=== PATIENT | male | born 1950 | race Caucasian/White ===

== ENCOUNTER → 2016-11-19 | Outpatient (CLI) | payer OTHER ==
[~2016-11-19] MED LIST: ATOR-22 PO; LISI-725 PO
[2016-11-19 09:54] LABS: BLOOD UREA NITROGEN 18 mg/dl (7-18); BUN/CREATININE RATIO 13.1 (10-20); CALCIUM 9.1 mg/dl (8.5-10.1); CARBON DIOXIDE 28 mmol/L (21-32); CHLORIDE 104 mmol/L (98-107); CHOLESTEROL 235 mg/dl (0-200); GLUCOSE 98 mg/dl (70-99); POTASSIUM 4.7 mmol/L (3.5-5.1); SODIUM 139 mmol/L (136-145); TRIGLYCERIDES 83 mg/dl (0-150); VERY LOW DENSITY LIPOPROT CALC 17 mg/dl
[2016-11-19 09:59] LABS: CHOLESTEROL/HDL RATIO 3.1; HDL CHOLESTEROL 76 mg/dl; LDL CHOLESTEROL CALCULATED 142 mg/dl
== END | disposition home or self-care (01) ==
LOC: C.LAB 08:39
DX: I10 Essential (primary) hypertension (principal); E78.5 Hyperlipidemia, unspecified; N40.0 Benign prostatic hyperplasia without lower urinary tract symptoms

== ENCOUNTER → 2016-12-13 | Outpatient (CLI) | payer OTHER ==
--- NOTE | 2016-12-13 13:13 | DIAGNOSTIC IMAGING REPORT ---
ULTRASOUND LEFT GROIN NONVASCULAR CLINICAL HISTORY: Melanoma. Lymphadenopathy. COMPARISON STUDY: No priors. FINDINGS: Real-time, grayscale, and color flow sonography of the left groin is performed at the indicated site of interest. There is an ovoid hypoechoic soft tissue lesion at this site measuring 2.3 x 1.3 x 1.8 cm. Internal flow is identified on color imaging, and the appearance is concerning for an abnormal lymph node. No fluid collection is seen. IMPRESSION: There is an abnormal appearing left inguinal lymph node as detailed above. The appearance is concerning for metastatic disease given the reported history of melanoma. Further assessment with fine-needle aspiration is recommended. Electronically signed by: Taran Betancourt M.D. 12/13/2016 1:12 PM Dictated Date/Time: 12/13/2016 1:10 PM
== END | disposition home or self-care (01) ==
LOC: C.ULTRBC 12:44
DX: R59.0 Localized enlarged lymph nodes (principal); Z85.820 Personal history of malignant melanoma of skin

== ENCOUNTER → 2016-12-22 | Outpatient (CLI) | payer OTHER ==
--- NOTE | 2016-12-22 10:47 | DIAGNOSTIC IMAGING REPORT ---
ULTRASOUND-GUIDED FINE-NEEDLE ASPIRATION OF A LEFT INGUINAL LYMPH NODE HISTORY: Left inguinal lymphadenopathy. COMPARISON: Left inguinal ultrasound 12/13/2016. PROCEDURE: Written informed consent was obtained. The left groin was prepped and draped in the usual sterile fashion. 1% lidocaine was used for local anesthesia. A total of 2 passes using a 25-gauge needle and a 22-gauge needle were made through dominant left inguinal lymph node under ultrasound guidance. Specimens were given to the on-site pathologist who determined adequate tissue for diagnosis. The patient tolerated the procedure well. There were no immediate complications. IMPRESSION: Successful ultrasound-guided fine-needle aspiration of a left inguinal lymph node Electronically signed by: Shahbaz Landin M.D. 12/22/2016 10:46 AM Dictated Date/Time: 12/22/2016 10:45 AM
--- NOTE | 2016-12-22 10:48 | Discharge Instructions ---
Discharge Instructions Procedure Procedure Date: Dec 22, 2016. Reason for visit: Mass Left Leg. Discharge Discharge Date: Dec 22, 2016. Discharge Diagnosis: same Instructions Activity Recommendations: No limitations Return to School/Work: no limitations Recommended Home Diet: Resume Previous Diet Provider Instructions: ACTIVITY RECOMMENDATIONS: * Rest today. * Resume regular activity in one day. MEDICATIONS: * May take Tylenol or Ibuprofen as needed for pain. DIET: * Resume previous diet. SPECIAL CARE INSTRUCTIONS: Call your doctor if: * Temperature above 101 degrees F. * Pain not relieved by pain medicine ordered. * Increased drainage or redness from incision. * Notify your doctor with any questions or concerns. Call your doctor or go to the nearest Emergency Department if you experience: * Increased chest pain or shortness of breath. FOLLOW UP VISIT: Follow-up with Referring Physician as scheduled. Allergies Coded Allergies: No Known Allergies (Unverified , 06/08/16) Poli Messer Recommendations: Call your doctor if: * Temperature above 101 degrees * Pain not relieved by pain medicine ordered * There is increased drainage or redness from any incision * You have any unanswered questions or concerns. Your Doctors Instructions noted above were prepared by provider Shahbaz Landin. Patient Signature Section: Patient Instructions Signature Page Rogelio Casillas Patient (or Guardian) Signature/Date: I have read and understand the instructions given to me by my caregivers. Caregiver/RN/Doctor Signature/Date: The above-named patient and/or guardian has received patient instructions on this date. + Original Patient Signature Page (only) stays with chart. Please make copy for patient.
== END | disposition home or self-care (01) ==
LOC: C.ULTR 09:48
DX: C43.72 Malignant melanoma of left lower limb, including hip (principal)

== ENCOUNTER → 2016-12-29 | Outpatient (CLI) | payer OTHER ==
[2016-12-29 13:12] LABS: BASO % 1.1 %; BASO ABS # 0.08 K/uL (0-0.2); COMPLETE YES; EOS % 1.8 %; HEMATOCRIT 39.7 % (42-52); IG% 0.1 %; LYMPH % 15.4 %; LYMPH ABS # 1.09 K/uL (1.2-3.4); MEAN CELL VOLUME 90.8 fL (80-100); MEAN CORPUSCULAR HEMOGLOBIN 31.8 pg (25-34); MEAN PLATELET VOLUME 9.9 fL (7.4-10.4); MONO % 7.6 %; PLATELET COUNT 296 K/uL (130-400); RED BLOOD COUNT 4.37 M/uL (4.7-6.1); WHITE BLOOD COUNT 7.09 K/uL (4.8-10.8)
[2016-12-29 13:37] LABS: ALT/SGPT 39 U/L (12-78); AST/SGOT 24 U/L (15-37); BLOOD UREA NITROGEN 23 mg/dl (7-18); BUN/CREATININE RATIO 17.4 (10-20); CALCIUM 9.2 mg/dl (8.5-10.1); CARBON DIOXIDE 31 mmol/L (21-32); CHLORIDE 106 mmol/L (98-107); GLUCOSE 90 mg/dl (70-99); POTASSIUM 4.3 mmol/L (3.5-5.1); SODIUM 141 mmol/L (136-145)
[2016-12-29 13:39] LABS: ALB/GLOB RATIO 1.3 (0.9-2); ALKALINE PHOSPHATASE 60 U/L (45-117)
--- NOTE | 2016-12-29 15:01 | DIAGNOSTIC IMAGING REPORT ---
CT ABD/PELVIS IV AND ORAL CONT CLINICAL HISTORY: Malignant melanoma COMPARISON STUDY: None. TECHNIQUE: Following the IV administration of 119 mL of Optiray-320, CT scan of the abdomen and pelvis was performed from the lung bases to the proximal femurs. Images are reviewed in the axial, sagittal, and coronal planes. IV contrast was administered without complication. CT DOSE: FINDINGS: Lower chest: The heart is normal in size and configuration, without pericardial effusion. The lung bases and pleural spaces are clear. Liver: The contrast-enhanced liver is normal in size, contour, and attenuation. There is no intrahepatic biliary ductal dilatation. The hepatic veins and portal veins are patent. Gallbladder: Unremarkable. Spleen: Normal in size and attenuation. Pancreas: Unremarkable. Adrenal glands: Unremarkable. Kidneys: There is an 11 mm right renal cyst. There is no hydronephrosis. Bowel: There are no transition zones indicate bowel obstruction. No acute inflammatory changes are visualized. Peritoneum: There is no intraperitoneal free air or abdominal ascites. Vasculature: The abdominal aorta is normal in course and caliber. Adenopathy: There are borderline enlarged left inguinal lymph nodes measuring up to 13 mm in diameter. Pelvic viscera: There is mild prostatic enlargement Skeletal structures: No destructive osseous lesions are seen. IMPRESSION: Borderline enlarged left inguinal lymph nodes. Otherwise no evidence of metastatic disease. Electronically signed by: Thomas Coy M.D. 12/29/2016 2:59 PM Dictated Date/Time: 12/29/2016 2:55 PM
--- NOTE | 2016-12-29 15:13 | DIAGNOSTIC IMAGING REPORT ---
CT OF THE CHEST WITH IV CONTRAST CLINICAL HISTORY: Malignant melanoma. COMPARISON STUDY: Chest radiograph May 17, 2012 TECHNIQUE: Following IV administration of 119 mL of Optiray-320, helical axial images of the chest were obtained. Images were viewed in the axial, sagittal and coronal planes. IV contrast was administered without complication. CT DOSE: 763.09 mGy.cm FINDINGS: No enlarged axillary, mediastinal or hilar lymph nodes are present. The heart is mildly enlarged. Central airways are patent. There are no suspicious pulmonary nodules. There are no areas of consolidation. Linear and groundglass opacities represent atelectasis. The bony thorax is unremarkable. There are no suspicious osseous lesions within the bony thorax. The abdomen and pelvis will be reported separately. There is a cyst within the upper pole of the right kidney. IMPRESSION: No evidence of metastatic disease within the chest. Electronically signed by: Toni Boykin M.D. 12/29/2016 3:12 PM Dictated Date/Time: 12/29/2016 2:58 PM
== END | disposition home or self-care (01) ==
LOC: C.CTS 12:16
DX: C43.72 Malignant melanoma of left lower limb, including hip (principal)

== ENCOUNTER → 2017-01-06 | Outpatient (CLI) | payer OTHER ==
[~2017-01-06] MED LIST changes: +GADAVIST IV PRN
--- NOTE | 2017-01-06 18:00 | DIAGNOSTIC IMAGING REPORT ---
MRI OF THE BRAIN WITHOUT AND WITH IV CONTRAST CLINICAL HISTORY: MALIGNANT MELANOMA STAGING STUDY COMPARISON STUDY: No previous studies for comparison. TECHNIQUE: MRI of the brain was performed from the vertex to the skull base utilizing various T1 and T2 weighted sequences. Following the IV administration of 8 mL of Gadavist contrast, additional enhanced images were obtained. FINDINGS: Sagittal T1, axial diffusion, proton density and T2 weighted axial, coronal FLAIR, and pre and post axial T1-weighted images were acquired. These were supplemented with post gadolinium coronal T1 weighted images. No intra-axial mass lesions are visualized. There is a 10 x 7 x 3 mm dural based mass within the left parietal convexity. This likely reflects a tiny meningioma Axial diffusion-weighted images reveal no evidence of acute or subacute infarction. There is no evidence of ventricular dilatation. Proton density T2-weighted and FLAIR images reveal no significant intraparenchymal signal abnormalities. There are no abnormal flow voids. The suspected left parietal vertex meningioma enhances. There are no additional foci of pathologic enhancement There is mild inflammatory changes within the maxillary sinuses IMPRESSION: 1. 10 x 7 x 3 mm enhancing dural based mass within the left parietal convexity. This likely represents a tiny meningioma. No additional enhancing lesions are visualized. 2. No evidence of acute or subacute infarction Electronically signed by: Thomas Coy M.D. 01/06/2017 5:58 PM Dictated Date/Time: 01/06/2017 5:53 PM
== END | disposition home or self-care (01) ==
LOC: C.MRI 17:01
PROVIDERS: ATTEND Internal Medicine Hematology & Oncology
DX: C43.9 Malignant melanoma of skin, unspecified (principal)

== ENCOUNTER → 2017-02-25 | Outpatient (CLI) | payer OTHER ==
[~2017-02-25] MED LIST changes: -GADAVIST IV PRN
[2017-02-25 09:55] LABS: CALCIUM 9.6 mg/dl (8.5-10.1)
[2017-02-25 10:01] LABS: ALT/SGPT 40 U/L (12-78); BLOOD UREA NITROGEN 19 mg/dl (7-18); BUN/CREATININE RATIO 15.7 (10-20); CARBON DIOXIDE 29 mmol/L (21-32); CHLORIDE 102 mmol/L (98-107); GLUCOSE 91 mg/dl (70-99); POTASSIUM 4.5 mmol/L (3.5-5.1); SODIUM 138 mmol/L (136-145)
[2017-02-25 10:03] LABS: AST/SGOT 26 U/L (15-37)
== END | disposition home or self-care (01) ==
LOC: C.LAB 08:06
DX: I10 Essential (primary) hypertension (principal); E78.5 Hyperlipidemia, unspecified

== ENCOUNTER → 2017-08-24 | Outpatient (CLI) | payer OTHER ==
[2017-08-24 11:10] LABS: BASO % 0.6 %; BASO ABS # 0.04 K/uL (0-0.2); COMPLETE YES; EOS % 2.3 %; IG% 0.3 %; LYMPH % 18.4 %; LYMPH ABS # 1.22 K/uL (1.2-3.4); MEAN CELL VOLUME 90.9 fL (80-100); MEAN CORPUSCULAR HEMOGLOBIN 31.2 pg (25-34); MEAN CORPUSCULAR HGB CONC 34.3 g/dl (32-36); MEAN PLATELET VOLUME 10.1 fL (7.4-10.4); MONO % 12.5 %; NEUT % 65.9 %; PLATELET COUNT 341 K/uL (130-400); RED BLOOD COUNT 4.62 M/uL (4.7-6.1); WHITE BLOOD COUNT 6.64 K/uL (4.8-10.8)
[2017-08-24 11:37] LABS: ALT/SGPT 40 U/L (12-78); AST/SGOT 27 U/L (15-37); BLOOD UREA NITROGEN 14 mg/dl (7-18); BUN/CREATININE RATIO 10.1 (10-20); CARBON DIOXIDE 26 mmol/L (21-32); CHLORIDE 101 mmol/L (98-107); CREATININE 1.38 mg/dl (0.60-1.40); GLUCOSE 94 mg/dl (70-99); SODIUM 135 mmol/L (136-145)
[2017-08-24 11:40] LABS: CHOLESTEROL 99 mg/dl (0-200); CHOLESTEROL/HDL RATIO 2.3; HDL CHOLESTEROL 44 mg/dl; LDL CHOLESTEROL CALCULATED 38 mg/dl; TRIGLYCERIDES 85 mg/dl (0-150); URIC ACID 8.4 mg/dl (2.6-7.2); VERY LOW DENSITY LIPOPROT CALC 17 mg/dl
== END | disposition home or self-care (01) ==
LOC: C.LABBC 08:28
DX: I10 Essential (primary) hypertension (principal); E78.5 Hyperlipidemia, unspecified

== ENCOUNTER → 2017-11-18 | Outpatient (CLI) | payer OTHER ==
[2017-11-18 09:29] LABS: BASO % 0.2 %; BASO ABS # 0.02 K/uL (0-0.2); EOS % 1.7 %; EOS ABS # 0.22 K/uL (0-0.5); HEMATOCRIT 37.3 % (42-52); HEMOGLOBIN 12.8 g/dL (14.0-18.0); IG# 0.26 K/uL (0.00-0.02); LYMPH % 22.1 %; LYMPH ABS # 2.94 K/uL (1.2-3.4); MEAN CELL VOLUME 90.8 fL (80-100); MEAN CORPUSCULAR HEMOGLOBIN 31.1 pg (25-34); MEAN PLATELET VOLUME 9.3 fL (7.4-10.4); MONO % 9.8 %; NEUT % 64.2 %; NEUT ABS # 8.54 K/uL (1.4-6.5); PLATELET COUNT 320 K/uL (130-400); RED CELL DISTRIBUTION WIDTH CV 14.9 % (11.5-14.5); RED CELL DISTRIBUTION WIDTH SD 49.5 fL (36.4-46.3); WHITE BLOOD COUNT 13.28 K/uL (4.8-10.8)
[2017-11-18 09:36] LABS: MEAN CORPUSCULAR HGB CONC 34.3 g/dl (32-36)
[2017-11-18 09:48] LABS: ALBUMIN 3.1 gm/dl (3.4-5.0); BLOOD UREA NITROGEN 19 mg/dl (7-18); CALCIUM 8.6 mg/dl (8.5-10.1); CARBON DIOXIDE 29 mmol/L (21-32); CREATININE 1.04 mg/dl (0.60-1.40); GLUCOSE 93 mg/dl (70-99); POTASSIUM 3.8 mmol/L (3.5-5.1); SODIUM 140 mmol/L (136-145)
[2017-11-18 09:50] LABS: ALKALINE PHOSPHATASE 57 U/L (45-117); ALT/SGPT 47 U/L (12-78); AST/SGOT 24 U/L (15-37); TOTAL PROTEIN 5.6 gm/dl (6.4-8.2)
== END ==
LOC: C.LAB 08:59
PROVIDERS: ATTEND Internal Medicine Hematology
DX: C43.9 Malignant melanoma of skin, unspecified (principal)

== ENCOUNTER → 2017-12-23 | Outpatient (CLI) | payer OTHER ==
[2017-12-23 16:39] LABS: ALT/SGPT 62 U/L (12-78); AST/SGOT 43 U/L (15-37); BLOOD UREA NITROGEN 18 mg/dl (7-18); CALCIUM 8.8 mg/dl (8.5-10.1); CARBON DIOXIDE 27 mmol/L (21-32); CREATININE 1.24 mg/dl (0.60-1.40); GLUCOSE 83 mg/dl (70-99); POTASSIUM 4.3 mmol/L (3.5-5.1); SODIUM 137 mmol/L (136-145)
== END | disposition home or self-care (01) ==
LOC: C.LABBC 14:04
DX: I10 Essential (primary) hypertension (principal); E78.5 Hyperlipidemia, unspecified

== ENCOUNTER → 2018-05-03 | Outpatient (CLI) | payer OTHER ==
[2018-05-03 12:23] LABS: BASO ABS # 0.07 K/uL (0-0.2); EOS % 1.9 %; EOS ABS # 0.14 K/uL (0-0.5); HEMATOCRIT 44.1 % (42-52); HEMOGLOBIN 14.6 g/dL (14.0-18.0); IG# 0.02 K/uL (0.00-0.02); LYMPH % 15.5 %; LYMPH ABS # 1.12 K/uL (1.2-3.4); MEAN CELL VOLUME 94.2 fL (80-100); MEAN CORPUSCULAR HEMOGLOBIN 31.2 pg (25-34); MEAN CORPUSCULAR HGB CONC 33.1 g/dl (32-36); MONO % 12.1 %; MONO ABS # 0.87 K/uL (0.11-0.59); NEUT % 69.2 %; NEUT ABS # 4.99 K/uL (1.4-6.5); PLATELET COUNT 332 K/uL (130-400); RED CELL DISTRIBUTION WIDTH CV 14.2 % (11.5-14.5); RED CELL DISTRIBUTION WIDTH SD 48.5 fL (36.4-46.3); WHITE BLOOD COUNT 7.21 K/uL (4.8-10.8)
[2018-05-03 12:49] LABS: ALT/SGPT 49 U/L (12-78); AST/SGOT 46 U/L (15-37); BLOOD UREA NITROGEN 14 mg/dl (7-18); CALCIUM 9.2 mg/dl (8.5-10.1); CARBON DIOXIDE 26 mmol/L (21-32); CREATININE 1.07 mg/dl (0.60-1.40); GLUCOSE 84 mg/dl (70-99); POTASSIUM 5.2 mmol/L (3.5-5.1); SODIUM 136 mmol/L (136-145)
== END | disposition home or self-care (01) ==
LOC: C.LAB 09:52
DX: I10 Essential (primary) hypertension (principal); E78.5 Hyperlipidemia, unspecified; N40.0 Benign prostatic hyperplasia without lower urinary tract symptoms

== ENCOUNTER 2024-12-26 05:27 | Observation (INO) ==
--- NOTE | 2024-11-14 11:53 | PAT Medication Instructions ---
Medication Instructions Date of Service November 14, 2024 Home Medications atorvastatin 20 mg tablet 20 mg PO QAM lisinopril 20 mg tablet 20 mg PO QAM DO NOT take the morning of surgery lisinopril 20 mg tablet 20 mg PO QAM Take morning of surgery With a small sip of water, OTHERWISE NOTHING TO EAT OR DRINK AFTER MIDNIGHT: atorvastatin 20 mg tablet 20 mg PO QAM Other Notes If you have any questions please call us at [phone] or [phone] or [phone] or [phone]
--- NOTE | 2024-11-26 10:34 | Anesthesiology Consultation ---
Date of Service November 26, 2024 Assessment & Plan (1) Encounter for pre-operative examination: - Infectious disease screening: Per assessment on 11/26/24- No known recent infectious disease contacts or current infectious disease symptoms. - Outpatient joint assessment: Pt currently scheduled for inpatient pathway. If surgeon requests review for outpatient joint pathway, patient is an acceptable candidate for outpatient joint program from anesthesia standpoint pending surgeon's office assessment that patient is motivated, has good support and completes Same Day Joint Program preop requirements. - Patient acceptable risk for surgery pending surgeon-ordered PCP preop evaluation (IMAN Taylor/Dr. Sykes, appt 12/19). Chart Review Chart Review: Patient seen in Pre Admission Testing Teaching & Discussion Pre-Anesthesia Teaching/Discussion Notes: Instructed NPO after midnight before surgery,except medications with 15 cc of water. Medication instructions provided according to the PAT guidelines. History Surgery Operation Date: 12/26/24 09:20 Proposed Procedures p Left Total Shoulder Arthroplasty - Garcia Villanueva MD Height/Weight Height: 5 ft 9 in Weight: 76.7 kg Allergies Allergy/AdvReac Type Severity Reaction Status Date / Time No Known Allergies Allergy Verified 11/14/24 08:57 Medications Home Medications Medication Instructions Recorded Confirmed Last Taken atorvastatin 20 mg tablet 20 mg PO QAM 11/14/24 11/14/24 Unknown lisinopril 20 mg tablet 20 mg PO QAM 11/14/24 11/14/24 Unknown Past Medical History Medical History History of melanoma Right calf (2017), surgery to remove > mets to lymph system (placed in study for immunotherapy) Hyperlipidemia Hypertension Exercise / Class Metabolic Activity II 4-5 Yardwork/Stairs/Walk up hill Past Family History Family History Other No pertinent family history Past Surgical History Surgical History Family history of reaction to anesthesia Mother- ? anesthesia/surgical/medical complications in which mother was in a coma condition for a few weeks following glioblastoma tumor bx and once awake never spoke again. No further details/specifics known. He states they were advised that this was a possible outcome of the procedure. Patient states otherwise no known family history of anesthesia reactions or personal hx of anesthesia reactions. H/O wrist surgery Right wrist carpectomy; left wrist fusion History of surgery Lymph node removal-due to melanoma metastasis Hx of arthroscopy of left knee Hx of arthroscopy of right knee Hx of colonoscopy Hx of left cataract extraction Hx of melanoma excision (2017) Right calf Hx of nasal septoplasty , septorhinoplasty Hx of tonsillectomy in 1949s Past Anesthesia History No Hx of Anesthesia Complications * Mother- ? anesthesia/surgical/medical complications in which mother was in a coma condition for a few weeks following glioblastoma tumor bx and once awake never spoke again. No further details/specifics known. He states they were advised that this was a possible outcome of the procedure. Patient states otherwise no known family history of anesthesia reactions or personal hx of anesthesia reactions. History of PONV No Hx of PONV and No Hx of Motion Sickness Social History Smoking Status: Former smoker Do You Dip or Chew Tobacco: No Smoking End Date: Quit in the s/s Hx Alcohol Use: No (Quit 2022) Hx Substance Use: No substance use type: does not use Review of Systems Patient denies chest pain, shortness of breath, dyspnea on exertion, fever, chills, cough, wheezing. Physical Exam Vital Signs BP 155/86 P 62 TEMP 97.9 SP02 98%RA RESP 18 Physical Decreased cervical extension range of motion. Full TMJ range of motion. TMD 3 finger breaths Mallampati Score I Dentition: missing lower right, + caps Lungs: clear throughout to auscultation Cardiac: regular rate and rhythm, no murmurs noted Spine: normal Carotid arteries: negative bruit Extremities: no LE edema Lab Results Anesthesia Preop Results Results Anesthesia Widget: WBC 5.49 K/ul (4.8-10.8) 11/26/24 Hgb 13.7 g/dl (14.0-18.0) L 11/26/24 Hct 41.3 % (42.0-52.0) L 11/26/24 Plt 332 K/uL (130-400) 11/26/24 Na 138 mmol/L (136-145) 11/26/24 K 4.9 mmol/L (3.5-5.1) 11/26/24 Cl 104 mmol/L (98-107) 11/26/24 CO2 29 mmol/L (21-32) 11/26/24 BUN 12 mg/dl (6-23) 11/26/24 Creat 1.04 mg/dl (0.6-1.4) 11/26/24 Glucose Level 90 mg/dl (70-99(Fasting)) 11/26/24 PT 10.3 Seconds (9.0-12.0) 11/26/24 PTT 28 Seconds (21-31) 11/26/24 INR 0.9 (0.9-1.1) 11/26/24 Urine Color Yellow 11/26/24 Urine Appearance Clear (Clear) 11/26/24 Urine pH 7.0 (4.5-7.5) 11/26/24 Urine Specific [place] 1.010 (1.000-1.030) 11/26/24 Urine Protein Negative (Negative) 11/26/24 Urine Glucose (UA) Negative (Negative) 11/26/24 Urine Ketones Negative (Negative) 11/26/24 Urine Blood Negative (Negative) 11/26/24 Urine Nitrite Negative (Negative) 11/26/24 Urine Bilirubin Negative (Negative) 11/26/24 Urine Urobilinogen Negative (Negative) 11/26/24 Urine Leukocyte Esterase Negative (Negative) 11/26/24 Blood Type O Positive 11/26/24 Antibody Screen NEGATIVE 11/26/24 Testing Electrocardiogram Date: 11/26/24 SB at 57bpm. "Otherwise normal ECG" No significant change compared to 05/28/2016 per wink cutter operator comparison. Chest X-Ray Date: 11/26/24 FINDINGS: Heart size and pulmonary vasculature are normal. No effusion or consolidation. IMPRESSION: No acute findings.
--- NOTE | 2024-12-26 05:30 | History & Physical Bridge Note ---
Date of Service December 26, 2024 History & Physical Bridge Note I have examined the patient, reviewed the History & Physical and in the interval since the performance of the History & Physical I have noted the following changes of clinical significance: consent and site verified.no changes noted
[2024-12-26] MEDS: LR 15ML/HR IV SCH (05:57)
[2024-12-26] MEDS: LR 60ML/HR IV SCH (05:57)
[2024-12-26] MEDS ORDERED: BUPIVACAINE 0.5 % 5 MG/1 ML PF 10ML VIAL ONE (06:27)
[2024-12-26] MEDS ORDERED: fentaNYL citrate PF 100 MCG/2 ML VIAL ONE (06:39)
[2024-12-26] MEDS ORDERED: MIDAZOLAM HCL 1 MG/ML 2ML VIAL ONE (06:39)
[2024-12-26] MEDS ORDERED: PROPOFOL IV EMULSION 10 MG/ML 20 ML VIAL IV ONE (06:41)
[2024-12-26] MEDS ORDERED: ONDANSETRON INJ 2 MG/ML 2 ML VIAL ONE (06:41)
[2024-12-26] MEDS ORDERED: LIDOCAINE 2% 2 ML VIAL/AMP(20MG/ML) INFIL ONE (06:41)
[2024-12-26] MEDS ORDERED: PHENYLEPHRINE HCL 10 MG/ML VIAL ONE (06:42)
[2024-12-26] MEDS: TRANEXAMIC ACID 1,000 MG **IV Pre-op IV SCH (06:50)
[2024-12-26] MEDS: ceFAZolin 2000MG 2,000 MG/15 ML SYR IV SCH ×2 (07:00→17:44)
[2024-12-26] MEDS ORDERED: ROCURONIUM BROMIDE 10 MG/ML 5 ML VIAL IV ONE (07:03)
[2024-12-26] MEDS ORDERED: HYDROmorphone INJ 2 MG/ML SYR/VIAL IV PRN (07:06)
[2024-12-26] MEDS ORDERED: ePHEDrine sulfate 50 MG/ML AMP IV PRN (07:06)
[2024-12-26] MEDS ORDERED: ATROPINE SULFATE 0.1 MG/ML 10ML SYR IV PRN (07:06)
[2024-12-26] MEDS ORDERED: PROMETHAZINE HCL 6.25 MG in SODIUM CHLORIDE 0.9% 50 ML IV PRN (07:06)
[2024-12-26] MEDS ORDERED: DEXAMETHASONE SOD INJ 4 MG/ML VIAL ONE (07:20)
[2024-12-26] MEDS ORDERED: GLYCOPYRROLATE 0.2 MG/ML VIAL ONE (08:02)
[2024-12-26] MEDS ORDERED: ePHEDrine sulfate 50 MG/ML AMP ONE (08:02)
[2024-12-26] MEDS: THROMBIN FOR SOLN 20000 UNIT KIT ONE (08:16)
[2024-12-26] MEDS ORDERED: SUGAMMADEX SODIUM 200 MG/2 ML VIAL IV ONE (08:30)
[2024-12-26] MEDS: TRANEXAMIC ACID 1,000 MG **IV Intra-op IV SCH (09:00)
--- NOTE | 2024-12-26 09:24 | Post Operative Brief Note ---
Immediate Post Op Note Date of Surgery December 26, 2024 Pre & Post Diagnosis Operation Date: 12/26/24 07:00 <No data on this case meets the specified criteria> Osteoarthritis left shoulder preop diagnosis. Osteoarthritis left shoulder postop diagnosis. I identified the patient and participated in the time-out.: Yes Procedure Operation Date: 12/26/24 07:00 <No data on this case meets the specified criteria> Hybrid total shoulder replacement cemented glenoid press-fit humerus Surgeon Garcia Villanueva MD Oracle Database Administrator Anabelle/Elliot Estimated Blood Loss 100 Findings Consistent with Post-Op Diagnosis Osteoarthritis with marginal osteophytes humerus and glenoid Fluids 1000 cc of fluid Complications None
--- NOTE | 2024-12-26 09:29 | Operative Report ---
Post Operative Report Pre & Post Diagnosis Operation Date: 12/26/24 07:00 <No data on this case meets the specified criteria> Osteoarthritis left shoulder preop diagnosis Osteoarthritis left shoulder postop diagnosis I identified the patient and participated in the time-out.: Yes Procedure Operation Date: 12/26/24 07:00 <No data on this case meets the specified criteria> Hybrid total shoulder replacement cemented glenoid press-fit humerus Surgeon Garcia Villanueva MD Machine Operator Picker Anabelle/Elliot Estimated Blood Loss 100 Findings Consistent with Post-Op Diagnosis Severe osteoarthritis with marginal osteophytes intact rotator cuff Fluids 1000 cc Specimens Bone pathology Drains None Complications None Indications Severe pain end-stage arthritis by x-ray failed conservative management Description of Procedure After the patient was appropriate notified site verified consent verified antibiotics confirmed has been given the patient was exam revealing no instability of his shoulder he had forward flexion 140 abduction 120 external rotation to 20 internal rotation to belly. He was then carefully placed a beachchair position left upper extremity prepped and draped in his routine fashion. Deltopectoral approach was made cephalic vein was protected and retracted with the deltoid. All adhesions underneath the deltoid were released. Clavipectoral fascia was then opened. The rotator interval was identified stitch placed and is in the supraspinatus. The subscapularis was then released off the tuberosity subperiosteally. The biceps tendon was tagged with a #1 Vicryl and then released proximally. Release of the subscapularis to the anterior neck of the glenoid was completed and then retractors placed. The hip the shoulder was then dislocated and the humeral head then resected. Required 1 slight revision. Retractors were then replaced and the excellent exposure of the glenoid was carried out. Remaining labral and capsular tightness was then released. Seating was then made in the central area of the scapula and the reamer reaming carried out. There was marginal osteophytes that were then knocked off with the osteotome and with the reamer. Excellent clearance was then obtained. The seating holes for all of the liner were then made the distal to the proximal 1 in the centering sleeve hole. Trial was then placed it fit we ll there was no rocking. Wound was irrigated with Pulsavac soaked in Betadine and then the permanent glenoid cemented into position after 14 minutes everything was checked there was no cement removal required everything was irrigated. Humerus was then reduced into the wound and then serial broaching carried up to a size 16 and the multiple had trials with a 52 x 21 eccentric head was quite good. The trial implant was then removed and the holes made for the rotator cuff repair of the subscapularis using 4 sutures and 4 holes excellent suture spattering was placed. Wound was irrigated 1 final time with Betadine Pulsavac to the permanent stem seated with the sutures wrapped around the stem getting an extra purchase. Once that was carried out the permanent head was seated and then the shoulder reduced. There was good mobility good stability and good coverage by the rotator cuff. The height of the humerus was excellent. Subscapularis muscle after the wounds irrigated 1 final time was closed using the #2 FiberWire sutures were placed around the stem and through the humerus as well as the retraction sutures that were placed originally these were also used to close the biceps suspension anteriorly giving out a good repair. That was performed with the elbow virtually at extension so there is no undue tension. Rotator interval was then closed with the #1 Vicryl. The wound was irrigated 1 final time and then closed with 2-0 plain and stainless to clips appropriate dressing applied and sling applied the patient transferred recovery in satisfactory addition he tolerated procedure well. Family was contacted. His Tati. Summary of implants size 52 glenoid 16 x 35 body 16 stem 52 x 21 eccentric head these were all global unite DePuy Synthes total shoulder replacement. Glenoid was anterior peg glenoid prepped from area on anatomic proximal body for "standard stem and eccentric humeral head again a 52 glenoid 16 x 35 degree body 16 stem with 52 x 21 eccentric head EBL was 100 cc or less crystalloid per anesthesia 1000 cc on pathology pending DVT prophylaxis with mobilization. I attest to the content of the Intraoperative Record and any orders documented therein. Any exceptions are noted below.
--- NOTE | 2024-12-26 09:31 | Discharge Summary ---
Date of Service December 27, 2024 Admission HPI Per Admitting Provider Osteoarthritis left shoulder Principal Diagnosis Osteoarthritis left shoulder status post total shoulder replacement Discharge Data Allergies Allergy/AdvReac Type Severity Reaction Status Date / Time No Known Allergies Allergy Verified 12/26/24 05:43 Vaccinations None Consultations None Procedures Performed Operation Date: 12/26/24 07:00 <No data on this case meets the specified criteria> Hybrid total shoulder replacement cemented glenoid press-fit humerus left side Ordered Studies 12/26/24 05:00 US - OR guided needle placemen Routine Hospital Course (1) Status post total replacement of left shoulder: Total Time Total Time Spent Total Time Spent (In Minutes): 10 Discharge Plan Discharge Items Reason For Visit: Left Shoulder Osteoarthritis Discharge Diagnosis: Same Follow-up/Referrals: Elisha Miller DO [Primary Care Provider] - Addtl Attending Provider Instructions: DIET: * Resume previous diet. MEDICATIONS: * Please take your prescriptions as instructed at your pre-op appointment and/or see medication discharge instructions listed above. * If concerns develop, call your physician's office at . SPECIAL CARE INSTRUCTIONS: * Ice/Elevate as instructed. * Keep dressing clean, dry, intact. * Your surgical extremity may be discolored due to prepping agents used on the skin. A bluish-green tint is a normal variant and should not cause alarm. Call your doctor at [phone] if: * Temperature above 101 degrees * Pain not relieved by pain medicine ordered * There is increased drainage or redness from any incision * You have any unanswered questions, problems or concerns. FOLLOW UP VISIT: * If not already scheduled, please call the office at to schedule a follow-up appointment. Stand-Alone Forms: [facility] Medications and DC Order Prescriptions: No Action atorvastatin 20 mg tablet 20 mg PO QAM lisinopril 20 mg tablet 20 mg PO QAM Admission Data Admit Date/Time: 12/26/24 09:49 Attending Provider: Garcia Villanueva Admit Provider: Garcia Villanueva Primary Care Provider: Elisha Miller
--- NOTE | 2024-12-26 09:32 | Orthopedic Progress Note ---
Date of Service December 26, 2024 Orthopedic Progress Note Patient underwent total shoulder replacement hybrid cemented glenoid press-fit humerus on the left shoulder. Tolerated procedure well. Denies chest pain shortness breath fever chills nausea vomit headache. Vital signs are stable afebrile. Neurovascular check limited by neurovascular block. EBL was 100 cc or less 1000 cc of crystalloid family contacted. X-ray pending. Keep his arm in a sling.
--- NOTE | 2024-12-26 09:41 | Operative Report ---
Post Operative Report Pre & Post Diagnosis Operation Date: 12/26/24 07:00 Pre-Op Diagnosis: Left Shoulder Osteoarthritis Post-Op Diagnosis: Left Shoulder Osteoarthritis I identified the patient and participated in the time-out.: Yes Procedure Operation Date: 12/26/24 07:00 Actual Procedures p Left Total Shoulder Arthroplasty, Cemented(Left) - Garcia Villanueva MD Surgeon MARIA E Villanueva MD Plastic Process Technician Anabelle/Elliot SEGURA Estimated Blood Loss 100 Findings Consistent with Post-Op Diagnosis see operative report Specimens see operative report Drains none Complications none Disposition Accompanied Patient To Recovery: Yes Indications This 74 year old male presented to the office with complaints of persisting left shoulder pain. He had tried conservative care measures without improvement. He elected to proceed with surgical invention after being educated about potential risks and outcomes. Preoperative imaging was obtained. Description of Procedure The patient was administered a regional block and then taken to the operating room where he was given general anesthesia. He was prepped and draped in the usual sterile fashion. Please see Dr. Villanueva's operative report for specifics of the procedure. I was present for the entire case from initial patient positioning through final wound closure. Assistance was provided in tissue retraction, hemostasis, placement, final plan placement, and final wound closure. The patient was taken to the recovery room in satisfactory condition. I attest to the content of the Intraoperative Record and any orders documented therein. Any exceptions are noted below.
--- NOTE | 2024-12-26 09:42 | Operative Report ---
Post Operative Report Pre & Post Diagnosis Operation Date: 12/26/24 07:00 Pre-Op Diagnosis: Left Shoulder Osteoarthritis Post-Op Diagnosis: Left Shoulder Osteoarthritis I identified the patient and participated in the time-out.: Yes Procedure Operation Date: 12/26/24 07:00 Actual Procedures p Left Total Shoulder Arthroplasty, Cemented(Left) - Garcia Villanueva MD Surgeon Garcia Villanueva MD Food Safety Officer Anabelle/Elliot Estimated Blood Loss 100 Findings Consistent with Post-Op Diagnosis Specimens Bone pathology Description of Procedure The patient was brought to the operative suite where he underwent anesthesia. He was positioned. Left upper extremity was prepped and draped in the usual sterile fashion. A surgical timeout was performed. Patient underwent a left total shoulder arthroplasty. Please see Dr. Villanueva's operative report for full details. I was present and assisted with patient positioning, limb positioning, surgical approach, soft tissue retraction, hemostasis, hardware placement, wound closure, postoperative dressing and sling placement. The patient was awakened and taken to the recovery room in satisfactory condition. I attest to the content of the Intraoperative Record and any orders documented therein. Any exceptions are noted below.
--- NOTE | 2024-12-26 10:00 | XRay Report ---
XR shoulder LT 1V CLINICAL HISTORY: S/P L TSA COMPARISON: 06/25/2024 FINDINGS: Interval left shoulder prosthesis shows no hardware complication. There is expected soft t issue gas. Skin rae are present. IMPRESSION: Unremarkable postoperative exam. ACT 112: Negative or not required by law. Electronically signed by: Eitan Gustafson M.D. 12/26/2024 9:55 AM
[2024-12-26] MEDS ORDERED: HYDROmorphone INJ 0.5 MG/0.5 ML SYR IV PRN (10:38)
[2024-12-26] MEDS ORDERED: NALOXONE HCL 0.4 MG/1 ML VIAL/CARP IV PRN (10:38)
[2024-12-26] MEDS ORDERED: ONDANSETRON INJ 2 MG/ML 2 ML VIAL IV PRN (10:38)
[2024-12-26] MEDS ORDERED: METOCLOPRAMIDE HCL INJ 5 MG/ML 2 ML VIAL IV PRN (10:38)
[2024-12-26] MEDS ORDERED: bisacodyL 10 MG SUPP PR PRN (10:38)
[2024-12-26] MEDS ORDERED: diphenhydrAMINE 50 MG/ML VIAL IV PRN (10:38)
[2024-12-26] MEDS ORDERED: MAGNESIUM HYDROXIDE SUSP 30 ML UDC PO PRN (10:38)
[2024-12-26] MEDS ORDERED: ALUMINUM/MAGNESIUM SUSP 30 ML UDC PO PRN (10:38)
[2024-12-26] MEDS ORDERED: oxyCODONE HCL IR 5 MG TAB (IMMEDIATE RELEASE) PO PRN (10:38)
[2024-12-26] MEDS ORDERED: TAMSULOSIN HCL 0.4 MG CAP PO PRN (10:38)
--- OUTSIDE RECORDS SUMMARY | 2024-12-26 11:07 | External Medical Summary | Continuity of Care Document ---
Author Name Unknown Organization [id number] Address [address] [place] [address] [phone] Care Team Providers Care Aircraft Armorer Name Role Phone Elisha Miller Primary Care Sherrie felton [phone] [id number] Date(s): 12/03/24 - 12/03/24 [facility] 0 [facility] [address] [address] Encounter Diagnosis Osteoarthritis of left shoulder region(Discharge Diagnosis) - 12/03/24 Discharge Disposition: Home or Self Care Attending Physician: IMELDA Zarate, Jensen Morley Referring Physician: MD Kay, Garcia Borrero Encounter Type: Clinic Allergies, Adverse Reactions, Alerts No Known Medication Allergies Substance Criticality Severity Reaction Reaction Severity Status Allergy Not found in Search 1 seasonal Nasal itching Active 1"seasonal allergy" - itchy nose in fall and spring Immunizations Given and Recorded Vaccine Date Status Refusal Reason influenza virus vaccine, inactivated 06/29/24 Thomas rded influenza virus vaccine, inactivated 07/03/22 Thomas rded influenza virus vaccine, inactivated 07/08/21 Thomas rded influenza virus vaccine, inactivated 07/02/19 Thomas rded SARS-CoV-2 (COVID-19) mRNA-vacc - [id number] 06/29/24 Recorded SARS-CoV-2 mRNA (tozinameran 5y-11y) 07/22/21 Thomas rded zoster vaccine, inactivated 09/11/20 Recorded zoster vaccine, inactivated 06/29/11 Recorded pneumococcal 23-valent vaccine 09/24/15 Recorded pneumococcal 13-valent vaccine 12/30/14 Recorded tetanus/diphtheria/pertuss, acel (Tdap) 05/23/12 R ecorded Medications atorvastatin 20 mg oral tablet Start: 12/19/23 11:02:00 AM EDT, 1 tab, PO, Daily, Disp# 90 tab, Refills: 3, Pharmacy: [facility] Start Date: 12/19/23 Status: Ordered Quantity: 90.0 Unit: tab Repeat number: 4 lisinopril 20 mg oral tablet Start: 12/19/23 11:03:00 AM EDT, 1 tab, PO, Daily, Disp# 90 tab, Refills: 3, Pharmacy: [facility] Start Date: 12/19/23 Status: Ordered Quantity: 90.0 Unit: tab Repeat number: 4 Indication: Essential (primary) hypertension Mental Status 12/03/24 Barriers to Learning one year None evide nt Mandatory Health Literacy Documentation Yes Health Literacy Communication Barriers N ever Primary Language Divehi Problem List Condition Confirmation Course Effective Dates Status H ealth Status Informant AK (actinic keratosis) Confirmed Active Pseudophakia Confirmed Active Cataract of both eyes Confirmed Active Primary osteoarthritis of wrists, bilateral Confirmed Active Retained orthopedic hardware Confirmed Active Encounter for exam following cancer surgery Confirmed Active Hand pain, right Confirmed Active High cholesterol Confirmed Active HYPERTENSION Confirmed Active Melanoma Confirmed Active Actinic keratoses Confirmed Active 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 Osteoarthritis of left shoulder region Confirmed Active Pain in right shoulder Confirmed Active Prostate cancer screening Confirmed Active Seborrheic keratoses Confirmed Active Skin cancer Confirmed Active Fracture of scaphoid bone Confirmed Active Trigger middle finger of left hand Confirmed Active Wrist joint unstable Confirmed Active Diagnosis Diagnosis Type Effective Dates Health Status Clinical Service Informant Osteoarthritis of left shoulder region Discharge Diagnosis 12/03/24 Procedures Procedure Date Related Diagnosis Body Site Status CEIOL - cataract extraction LE 1 01/19/24 Completed Shave biopsy 2 11/09/23 Completed Electrodesiccation with curettage 10/28/22 Completed Shave biopsy and cauterization of skin 01/21/22 Completed Electrodesiccation with curettage 3 10/20/21 Completed Electrodesiccation with curettage 10/10/19 Completed Procedure 01/2017 Completed Shave biopsy and cauterization of skin 12/29/16 Completed Procedure 4 2015 Completed Excision 5 07/2015 Completed Shave biopsy of skin 06/25/15 Comp leted Colonoscopy 6 10/13/12 Completed Mohs surgery 2008 Completed Tonsillectomy 1957 Completed History of knee surgery 7 Completed 1OS. 2left preauricular area 3left forearm 4removal of screw from previous left wrist repair 5left calf melanoma removal 6normal exam 87138 and 1998 Procedure unnoted Vital Signs Most recent to oldest [Reference Range]: 1 Height 175.2 cm (12/03/24 11:08 AM) Patient Weight 74.8 kg (12/03/24 11:08 AM) Body Mass Index 24.37 kg/m2 (12/03/24 11:08 AM) Temperature [36.5-37.9 DegC] 36.4 DegC *LOW* (12/03/24 11:08 AM) Respiratory Rate 20 br/min (12/03/24 11:08 AM) Blood Pressure 120/82mmHg (12/03/24 11:08 AM) Cuff Pulse Pressure 38 mmHg (12/03/24 11:08 AM) Social History Social History Type Response Smoking Status Never smoked cigaret jeremy Sex Male Sex Representation Male (finding) Pre-OP H & P * IMELDA Zarate Cory D: PERFORM, MODIFY, MODIFY, MODIFY Event Display: Pre-OP H & P Authored Date: [id number] PRE-OPERATIVE HISTORY AND PHYSICAL Name: JULIÁN GRIFFITHS Patient Number: [id number] : 1950 Date of Service: 12/03/2024 PRE-OP Diagnosis: Left shoulder osteoarthritis Planned Procedure: Left shoulder total shoulder arthroplasty Chief Complaint: Left shoulder pain and loss of motion History of Present Illness (including history relevant to procedure): This 74-year-old male presents today for his preoperative history and physical. He is scheduled to undergo a left shoulder total shoulder arthroplasty with Dr. Villanueva on 12/26/2024. He has had left shoulder pain for over a year. Symptoms have become worse with time. He tried activity modification as well as OTC medications without improvement. He is having significant difficulty with motion. Occasional night pain that it disrupts his sleep. He notes grinding of the shoulder with motion. He denies any numbness or tingling. [id number]. He elects to proceed with surgical intervention in hopes of improving his pain and function. Preoperative imaging has been obtained. Review Of Systems: A total of 10 systems were reviewed and are significant only for below stated conditions. Family history: Significant for history of glioblastoma in his mother and breast cancer in his sisters. Also history of COPD and emphysema in his father. Social history: The patient is retired. . No tobacco use, no EtOH use. Past Medical History: Problems: Prostate cancer screening High cholesterol Melanoma HYPERTENSION Seborrheic keratoses Osteoarthritis of left shoulder region Pseudophakia Cataract of both eyes Primary osteoarthritis of wrists, bilateral SLAC (scapholunate advanced collapse) wrist Fracture of scaphoid bone Retained orthopedic hardware AK (actinic keratosis) Skin cancer Pain in right shoulder Trigger middle finger of left hand Procedure History Procedure Procedure Date Comments History of knee surgery - 1989 and 1998 Procedure un-noted CEIOL - cataract extraction LE 01/19/2024 - OS. Shave biopsy 11/09/2023 - left preauricular area Electrodesiccation with curettage 10/28/2022 Shave biopsy and cauterization of skin 01/21/2022 Electrodesiccation with curettage 10/20/2021 - left forearm Electrodesiccation with curettage 10/10/2019 Procedure 01/2017 Shave biopsy and cauterization of skin 12/29/2016 Procedure 2016 - removal of screw from previous left wrist repair Excision 07/2015 - left calf melanoma removal Shave biopsy of skin 06/25/2015 Colonoscopy 10/13/2012 - normal exam Mohs surgery 2009 Tonsillectomy Wrist surgery 01/2024 Allergies and Sensitivities: Allergy Not found in Search(seasonal) Allergy Not found in Search(Nasal itching) No Known Medication Allergies Current Home Meds: (Last Updated 12/03 11:03) atorvastatin (atorvastatin 20 mg oral tablet) 20 mg PO Daily lisinopril (lisinopril 20 mg oral tablet) 20 mg PO Daily Vitals: Last Updated 12/03/24 11:08 Weights: Last Updated 12/03/24 11:08 Date Temp Pulse BP RR SpO2 FIO2 Date Wt(kg) Wt(lb) 12/03 11:08 36.4 120/82 20 95 12/03 11:08 74.8 165 12/03 11:08 74.8 165 24 Hr Tmax: 36.4 at 12/03 11:08 Initial Wt: 12/03 74.8 kg 165 lb Physical Exam: (relevant to the procedure, including heart and lung evaluation) General: Well-developed, well-nourished, elderly male, in no acute distress. Sitting in a chair. Alert and oriented. HEENT: Normocephalic, atraumatic. Eyes PERRLA, EOMI. Nares patent bilaterally without nasal drainage. Oropharynx with mild good dentition and moist oral mucosa. Neck: No JVD. Cardiac: RRR. No MGR. Peripheral pulses are 2+. Lungs: Clear to auscultation bilaterally. No crackles, rhonchi, or wheezing. Good air movement. Abdomen: Bowel sounds present x 4. Soft nontender. No organomegaly. No masses. Extremities: Left shoulder evaluation reveals no obvious asymmetry or deformity. He has limitation with motion. External rotation of only about 10 degrees beyond neutral. Abduction of 100 degrees. Forward flexion of 110 degrees. He has focal discomfort with palpation over the glenohumeral joint. Nopain with palpation over the deltoid or posterior musculature. He has full range of motion of his el bow and strength is 5/5 for resisted flexion and extension of the elbow. Strength is 4+/5 for resisted abduction and external rotation. Neuro: Gross sensation is intact across the left arm by soft touch. Skin: Warm dry with good turgor. No rashes on the forearm or hand. No edema at the shoulder. Studies of radiology results (relevant to the procedure): Radiographic imaging previously obtained of the left shoulder shows end-stage DJD without elevation of the humeral head. ASSESSMENT: Left shoulder DJD Plan: Approximately 30 minutes was spent with the patient reviewing operative procedure, postoperative recovery, physical therapy requirements, and medication use. Postoperative prescription for Percocet 5/325 mg will be sent to his pharmacy upon discharge from the hospital. Anticipate discharge tohome with outpatient PT. Postop follow-up appointment has been made with me for January 10 at 2:30 PMfor staple removal. He has already seen [facility] for his preoperative lab work, EKG, and chest x-ray. Postop follow-up appointment has been made with physical therapy for 12/27 at 10:30 AM. PDMP was checked and there are no concerning findings. He is currently asymptomatic of any COVID-19 or influenza symptoms. He will see his PCP later this week for medical clearance. This dictation has been completed using Jogg text voice recognition software. Grammatical errors, omissions, insertions, and misspellings may be present due to the limitations of the software. Electronic Signature on File Electronically Reviewed/Signed by: Jensen Zarate PA-C Author Signature Dt/Tm:12/04/2024 05:20 PM Division of Sports Medicine Electronically Reviewed/Signed by: Garcia Villanueva MD Cosigner Signature Dt/Tm: 12/04/2024 06:15 PM Cnc Applications Engineer for Clinical Affairs, [facility] David Professor in Orthopaedics Oil Burner, [facility] Patient Care team information Care Team Personnel Name: Onel García DO, Mariana Annette Position: Physician - Family Med Member Role: Primary Care Provider Address: [address] [place] [address] Telecom: [phone] Care Team Related Persons Name: LANI GRIFFITHS Insurance Providers Guarantor name: JULIÁN GRIFFITHS Health Plan Information #: 1 Payer: MEDICARE Member Number: [id number] Policy Number: NA Group Number: NA Health Plan Information #: 2 Payer: [employer] Member Number: [id number] Policy Number: NA Group Number: NA
--- OUTSIDE RECORDS SUMMARY | 2024-12-26 11:07 | External Medical Summary | Continuity of Care Document ---
Author Name Unknown Organization [address] Address [address] [place] [address] DR JEAN-BAPTISTE MERRIMANMOLINA [phone] Care Team Providers Care Household Refrigeration Mechanic Name Role Phone Elisha Miller Primary Care jose francisco [phone] [id number] Date(s): 12/19/24 - 12/19/[address] [place] [address], [address] [place] [address] [phone] Encounter Diagnosis Body mass index [BMI] 24.0-24.9, adult(Discharge Diagnosis) - 12/19/24 Preop examination(Discharge Diagnosis) - 12/19/24 HYPERTENSION(Discharge Diagnosis) - 11/13/24 Melanoma(Discharge Diagnosis) - 11/13/24 High cholesterol(Discharge Diagnosis) - 11/13/24 Prostate cancer screening(Discharge Diagnosis) - 11/13/24 Discharge Disposition: Home or Self Care Attending Physician: Onel García DO, Mariana Annette Referring Physician: DO Loza Mehwish Encounter Type: Clinic Allergies, Adverse Reactions, Alerts No Known Medication Allergies Substance Criticality Severity Reaction Reaction Severity Status Allergy Not found in Search 1 seasonal Nasal itching Active 1"seasonal allergy" - itchy nose in fall and spring Assessment and Plan Extracted from: Title:Office Visit Note Author:Onel García DO, Mariana Annette Date:12/19/24 1.HYPERTENSION Stable BMP reviewed, normal can continue holding lis 2.Melanoma Stable cont f/u with derm and oncology 3.High cholesterol Stable lipid panel ordered if ASCVD risk elevated would re-start atorvastatin 4.Prostate cancer screening PSA ordered 5.Preop examination Patient seen for mary-operative risk stratification for shoulder replacement. Patient reports no cardiac symptoms at rest or on exertion, no history of ischemic heart disease, CHF, CVD, diabetes, EtOH/drug abuse, recent anticoagulant or antithrombotic use, personal or family history of coagulopathy, or CKD. Reports being able to achieve>10METs of activity during climbing stairs/walking uphill. This patient's does not have any identifiable cardiac risk factors. According to the RCRI, this number of risk factors stratifies the patient to Class I, which carries with it a0.4% risk of major CV complications, such as DC, CHF, or malignant arrhythmia (Circulation 1999; 100:1043). Patient is lowrisk for the proposed procedure. Immunizations Given and Recorded Vaccine Date Status Refusal Reason influenza virus vaccine, inactivated 06/29/24 Thomas rded influenza virus vaccine, inactivated 07/03/22 Thomas rded influenza virus vaccine, inactivated 07/08/21 Thomas rded influenza virus vaccine, inactivated 07/02/19 Thomas rded SARS-CoV-2 (COVID-19) mRNA-vacc - [id number] 06/29/24 Recorded SARS-CoV-2 (COVID-19) mRNA-vacc - [id number] 06/27/23 Recorded RSV vaccine preF3, recombinant 06/24/23 Recorded SARS-CoV-2 mRNA (Pfizer 12+) bivalent 06/14/22 Rec orded SARS-CoV-2 mRNA (tozinameran 5y-11y) 07/22/21 Thomas rded SARS-CoV-2 (COVID-19) mRNA BNT-162b2 vax 12/12/20 Recorded SARS-CoV-2 (COVID-19) mRNA BNT-162b2 vax 11/16/20 Recorded zoster vaccine, inactivated 09/11/20 Recorded zoster vaccine, inactivated 07/04/20 Recorded zoster vaccine, inactivated 06/29/11 Recorded pneumococcal 23-valent vaccine 09/24/15 Recorded pneumococcal 13-valent vaccine 12/30/14 Recorded tetanus/diphtheria/pertuss, acel (Tdap) 05/23/12 R ecorded Mental Status 12/19/24 Barriers to Learning one year None evide nt Mandatory Health Literacy Documentation Yes Health Literacy Communication Barriers N ever Primary Language Maltese Problem List Condition Confirmation Course Effective Dates [...] Effective Dates Health Status Clinical Service Informant High cholesterol Discharge Diagnosis 11/13/24 Non-Specified HYPERTENSION Discharge Diagnosis 11/13/24 Non-Specified Melanoma Discharge Diagnosis 11/13/24 Non-Specified Prostate cancer screening Discharge Diagnosis 11/13/24 Non-Specified Body mass index [BMI] 24.0-24.9, adult Discharge Diagnosis 12/19/24 Non-Specified Preop examination Discharge Diagnosis 12/19/24 Non-Specified Procedures Procedure Date Related Diagnosis Body Site [...] repair 5left calf melanoma removal 6normal exam 32728 and 1999 Procedure unnoted Vital Signs Most recent to oldest [Reference Range]: 1 Height 175 cm (12/19/24 8:45 AM) Patient Weight 75 kg (12/19/24 8:45 AM) Body Mass Index 24.49 kg/m2 (12/19/24 8:45 AM) Heart Rate 65 bpm (12/19/24 8:45 AM) Respiratory Rate 20 br/min (12/19/24 8:45 AM) Blood Pressure 138/82mmHg (12/19/24 8:45 AM) Social History Social History Type Response Smoking Status Never smoked cigaret jeremy Sex Male Sex Representation Male (finding) [facility]CM Outpt Note * Onel García DO, Mariana Annette: PERFORM Event Display: [facility]CM Outpt Note Authored Date: [id number] Chief Complaint well visit - discuss meds (he has stopped both meds about 1 mo ago), needs PSA check, preop for left shoulder on 12/26 nehemiah/ kristy History of Present Illness PRE-OPERATIVE EVALUTION Requested by:Dr. Villanueva Planned surgery: [_]High risk(aortic, peripheral vascular, cardiac, major transplant, lung resection) [ x ]Intermediate risk(intraperitoneal, intrathoracic, CEA, head/ neck, ortho, urologic, prostate) [ ]Low risk(endoscopic w/ BX, superficial, EGD, cataracts, breast, ambulatory, BTL, D&C, gail, T&A, lysis of adhesions, hernia, ITA, rhinoplasty ) Exercise tolerance: >10 METs [Very vigorous exercise]:biking fast; running race, racquetball, skip rope fast, competitive soccer; swimming laps fast Bleeding tendency:Denies h/o bleeding disorders or blood clots Substance use:None Prior anesthesia:No history of anesthesia complications with prior surgeries Revised Cardiac Risk Index: [0] Higher Risk Surgery (intraperitoneal, intrathoracic, supra-inguinal vascular) [0] Ischemic Heart Disease [0] History of CHF [0] History of cerebrovascular disease [0] Insulin therapy for DM [0] Pre-op Cr >2 Total Score= 0 Chronic conditions: - HTN and HLD - pt self-discontinued lisinopril and lipitor about 1 month ago as he lost ~10lbs andfelt he did not need these meds. Has been monitoring BP at home and has been 120s/80s. - metastatic malignant melanoma: treated, follows with oncology and dermatology. Health Maintenance: - Colon CA screening: colonoscopy 01/2018 - Immunizations: - Pneumonia: due - Tdap: due Physical Exam Vitals & Measurements HR:65(Monitored) RR:20 BP:138/82 SpO2:97% HT:175cm WT:75.000kg(Dosing) WT:75kg BMI:24.49 PHQ2 Data(Data Documented on:12/19/2024 08:41) Emotional health assessment NEGATIVE General: _Alert and oriented, No acute distress Cardiovascular: _Normal rate, Regular rhythm, No murmur, No gallop. Respiratory: _Lungs are clear to auscultation, Respirations are non-labored, Breath sounds are equal Psych: Mood-affect congruence. Speech is of normal pace and content Assessment/Plan 1.HYPERTENSION Stable BMP reviewed, normal can continue holding lis 2.Melanoma Stable cont f/u with derm and oncology 3.High cholesterol Stable lipid panel ordered if ASCVD risk elevated would re-start atorvastatin 4.Prostate cancer screening PSA ordered 5.Preop examination Patient seen for mary-operative risk stratification for shoulder replacement. Patient reports no cardiac symptoms at rest or on exertion, no history of ischemic heart disease, CHF, CVD, diabetes, EtOH/drug abuse, recent anticoagulant or antithrombotic use, personal or family history of coagulopathy, or CKD. Reports being able to achieve>10METs of activity during climbing stairs/walking uphill. This patient's does not have any identifiable cardiac risk factors. According to the RCRI, this number of risk factors stratifies the patient to ClassI, which carries with it a0.4% risk of major CV complications, such as DC, CHF, or malignant arrhythmia (Circulation 1999; 100:1043). Patient islowrisk for the proposed procedure. Attestation Time spent: Pre-visit planning: _6 [id number] visit: _24 Post-visit (orders/documentation/coordination of care):5 Total visit time: _35 Problem List/Past Medical History Ongoing Actinic keratoses AK (actinic keratosis) Cataract of both eyes Encounter for exam following cancer surgery Fracture of scaphoid bone Hand pain, right High cholesterol HYPERTENSION Melanoma Osteoarthritis of left shoulder region Pain in right shoulder Primary osteoarthritis of wrists, bilateral Prostate cancer screening Pseudophakia Retained orthopedic hardware Seborrheic keratoses Skin cancer SLAC (scapholunate advanced collapse) wrist Trigger middle finger of left hand Wrist joint unstable Resolved SCC (squamous cell carcinoma) Procedure/Surgical History CEIOL - cataract extraction LE| Service Date: 01/19/2024Shave biopsy| Service Date: 11/09/2023Electrodesiccation with curettage| Service Date: 10/28/2022Shave biopsy and cauterization of skin| Service Date: 01/21/2022Electrodesiccation with curettage| Service Date: 10/20/2021Electrodesiccation with curettage| Service Date: 10/10/2019Procedure| Service Date: 01/2017Shave biopsy and cauterization of skin| Service Date: 12/29/2016Procedure| Service Date: 2015Excision| Service Date: 07/2015Shave biopsy of skin| Service Date: 06/25/2015Colonoscopy| Service Date:10/13/2012Mohs surgery| Service Date: 2008Tonsillectomy| Service Date: 1957History of kneesurgery Medications atorvastatin(atorvastatin 20 mg oral tablet), 20 mg= 1 tab, PO, Daily, 3 refills lisinopril(lisinopril 20 mg oral tablet), 20 mg= 1 tab, PO, Daily, 3 refills pneumococcal 20-valent conjugate vaccine(Prevnar 20 intramuscular suspension), 0.5 mL, IM, ONCE Allergies Allergy Not found in Searchseasonal, Nasal itching No Known Medication Allergies Social History Smoking Status Never smoked cigarettes Tobacco - Denies Tobacco Use Intake (IView) Smoking History Cigarette smoker: Never smoked cigarettes Tobacco Product Use: Never used other tobacco products Family History Skin cancer: Daughter. Health Status Family Member(s) Immunizations Vaccine Date Status influenza virus vaccine, inactivated 06/29/2024 Recorded SARS-CoV-2 (COVID-19) mRNA-vacc - [id number] 06/29/2024 Recorded SARS-CoV-2 (COVID-19) mRNA-vacc - [id number] 06/27/2023 Recorded RSV vaccine preF3, recombinant 06/24/2023 Recorded influenza virus vaccine, inactivated 07/03/2022 Recorded SARS-CoV-2 mRNA (Pfizer 12+) bivalent 06/14/2022 Recorded SARS-CoV-2 mRNA (tozinameran 5y-11y) 07/22/2021 Recorded influenza virus vaccine, inactivated 07/08/2021 Recorded SARS-CoV-2 (COVID-19) mRNA BNT-162b2 vax 12/12/2020 Recorded SARS-CoV-2 (COVID-19) mRNA BNT-162b2 vax 11/16/2020 Recorded zoster vaccine, inactivated 09/11/2020 Recorded zoster vaccine, inactivated 07/04/2020 Recorded influenza virus vaccine, inactivated 07/02/2019 Recorded pneumococcal 23-valent vaccine 09/24/2015 Recorded pneumococcal 13-valent vaccine 12/30/2014 Recorded tetanus/diphtheria/pertuss, acel (Tdap) 05/23/2012 Recorded zoster vaccine, inactivated 06/29/2011 Recorded Recommendations Health Maintenance Pending(in the next year) OverDue Colorectal Cancer Screening due10/11/22and every 10year Due Adult Social Determinants of Health Screening due12/19/24Unknown Frequency Adult Tdap/Td Vaccine due12/19/24Unknown Frequency Hepatitis C Screening due12/19/24One-time only Medicare Annual Wellness Visit due12/19/24and every 1year Pneumococcal Vaccine Older Adults due12/19/24One-time only Due In Future Adult Influenza Vaccine not due until04/02/25and every 1year Satisfied(in the past 1 year) Satisfied Adult Influenza Vaccine on06/29/24.Satisfied by ARACELI Butcher Angela Body Mass Index on12/19/24.Satisfied by AGUILA Mccauley, Pina Seasonal COVID 19 Vaccine on06/29/24.Satisfied by ARACELI Butcher Angela Electronic Signature on File Electronically Reviewed/Signed by: Elisha García DO Author Signature Dt/Tm:12/19/2024 12:08 PM Department of Family Medicine [facility] Patient Care team information Care Team Personnel Name: Onel García DO, Mariana Annette Position: Physician - Family Med Member Role: Primary Care Provider Address: [address] [place] [address] Telecom: [phone] Care Team Related Persons Name: LANI GRIFFITHS Insurance Providers Guarantor name: JULIÁN GRIFFITHS Health Plan Information #: 1 Payer: MEDICARE Member Number: [id number] Policy Number: NA Group Number: NA Health Plan Information #: 2 Payer: [employer] Member Number: [id number] Policy Number: NA Group Number: NA
[2024-12-26] MEDS: BUPIVACAINE LIPOSOME 1.3% 133 MG/10 ML VIAL ONE (12:06)
[2024-12-26] MEDS: KETOROLAC TROMETHAMINE 15 MG/ML VIAL IV SCH (13:04)
[2024-12-26] MEDS: ACETAMINOPHEN 500 MG TAB PO SCH (14:24)
--- NOTE | 2024-12-26 14:47 | Anesthesiology Progress Note ---
Date of Service December 26, 2024 Anesthesia Post Procedure Vital Signs Vital Signs: Temp Pulse Pulse Resp BP Pulse Ox O2 Del Method 12/26/24 13:37 36.6 C 70 18 123/75 99 Room Air 12/26/24 12:58 36.5 C 63 18 131/72 95 Room Air 12/26/24 11:30 36.4 C L 65 18 122/76 97 Room Air 12/26/24 10:59 36.4 C L 65 18 118/79 95 Room Air 12/26/24 10:30 36.8 C 64 18 122/78 96 Room Air 12/26/24 10:20 36.3 C L 63 19 129/72 95 Room Air 12/26/24 10:10 77 16 123/74 96 Room Air 12/26/24 10:00 77 22 109/74 100 Room Air 12/26/24 09:50 72 20 114/75 98 Oxymask 12/26/24 09:40 36.1 C L 64 10 L 121/73 99 Oxymask 12/26/24 05:46 36.9 C 62 20 166/85 H 98 Room Air O2 Flow Rate 12/26/24 13:37 12/26/24 12:58 12/26/24 11:30 12/26/24 10:59 12/26/24 10:30 12/26/24 10:20 12/26/24 10:10 12/26/24 10:00 12/26/24 09:50 2 12/26/24 09:40 7 12/26/24 05:46 Transfer of Care Handoff Completed per policy Notes Mental Status: alert / awake / arousable and participated in evaluation Nausea / Vomiting: adequately controlled Pain: adequately controlled Airway Patency, RR, SpO2: stable & adequate BP & HR: stable & adequate Hydration State: stable & adequate Anesthetic Complications: no major complications apparent and Pt Satisfied with anesthetic care
--- NOTE | 2024-12-26 15:55 | Orthopedic Progress Note ---
Date of Service December 26, 2024 Assessment & Plan Admission and Anticipated Discharge Date Admission Date: December 26, 2024 Orthopedic Progress Note Postop check status post left total shoulder placement. Patient resting comfortably in bed doing computer work. Denies chest pain shortness breath fever chills nausea vomiting headache. Vital signs are stable he is afebrile. Wound dressing clean dry and intact. Neurovascular check limited by block. Assessment doing well x-rays look good. Pain managed well with the block. Asked him to keep the sling on full-time. Do not remove it. He will be discharged tomorrow morning and go to outpatient clinic for dressing change and for PT to start. Range of motion could be 30 degrees of abduction 30 degrees of forward flexion and external rotation to 10 to 15 degrees from the belly. No active motion for 3 to 4 weeks. Wear the sling full-time. Other than when he is exercising. DVT prophylaxis with mobilization. In my absence he will be discharged tomorrow by Jensen Krishna.
[2024-12-26] MEDS: FERROUS GLUCONATE 324 MG TAB PO SCH (17:47)
[2024-12-26] MEDS: ASCORBIC ACID 500 MG TAB PO SCH (17:47)
[2024-12-26] MEDS: DOCUSATE SODIUM 100 MG CAP PO SCH (20:35)
[2024-12-26] MEDS: SENNA 8.6 MG TAB PO SCH (20:36)
[2024-12-27 06:20] LABS: Basophils # (auto) 0.04 K/uL (0.00-0.20); Basophils % (auto) 0.4 %; Eosinophils # (auto) 0.09 K/uL (0.00-0.50); Eosinophils % (auto) 0.9 %; Hematocrit (blood only) 34.4 % (42.0-52.0); Hemoglobin 11.5 g/dl (14.0-18.0); Immature Granulocytes # (auto) 0.04 K/uL (0.01-0.20); Immature Granulocytes % (auto) 0.4 %; Lymphocytes # (auto) 1.07 K/uL (1.20-3.40); Lymphocytes % (auto) 11.1 %; Mean Corpuscular Hemoglobin 29.2 pg (25.0-34.0); Mean Corpuscular Hgb Conc 33.4 g/dL (32.0-36.0); Mean Corpuscular Volume 87.3 fL (80.0-100.0); Mean Platelet Volume 9.4 fL (9.4-12.4); Monocytes # (auto) 1.02 K/uL (0.11-0.59); Monocytes % (auto) 10.5 %; Neutrophils # (auto) 7.42 K/uL (1.40-6.50); Neutrophils % (auto) 76.7 %; Platelet Count 249 K/uL (130-400); RDW Coefficient of Variation 13.9 % (11.5-14.5); RDW Standard Deviation 45.1 fL (36.4-46.3); Red Blood Count 3.94 M/uL (4.70-6.10); White Blood Count 9.68 K/ul (4.8-10.8)
[2024-12-27 06:35] LABS: BUN Creatinine Ratio 19.1 (10-20); Calcium 8.5 mg/dl (8.6-10.3); Creatinine Clr Calc Pharmacy 47.7 ml/min; Potassium 4.2 mmol/L (3.5-5.1)
[2024-12-27 07:15] VITALS: BP 118/72; PULSE 61; RESP 18; TEMP 98.6; O2SAT 99
[2024-12-27] MEDS: dexAMETHasone 10 MG in SYRINGE 0 ML IV SCH (07:51)
[2024-12-27] MEDS: ASPIRIN 81 MG ECTAB PO SCH (07:52)
[2024-12-27] MEDS: lisinopril 20 MG TAB PO SCH (07:52)
[2024-12-27] MEDS: ATORVASTATIN 20 MG TAB PO SCH (07:52)
[2024-12-27] MEDS: MULTIVITAMIN TAB PO SCH (07:52)
--- NOTE | 2024-12-27 09:14 | Orthopedic Progress Note ---
Date of Service December 27, 2024 Assessment & Plan (1) Status post total replacement of left shoulder: Plan: The patient was educated regarding today's findings. He is doing well. Continue using the sling. His dressing will be changed at physical therapy this morning. He has an appointment at the office at 1030. Written postoperative discharge instructions were provided. Prescription for Percocet was sent to his pharmacy. He will have passive motion of the shoulder for 6 weeks. Call with any other concerns. Admission and Anticipated Discharge Date Admission Date: December 26, 2024 Subjective This 74-year-old male is seen today in his room. He is 1 day status post left total shoulder arthroplasty. He states he is doing well. He has no pain. His block is worn off and he now has sensation in his hand. He denies any numbness or tingling. No chest pain, shortness of breath, nausea, vomiting, or abdominal pain. Review of Systems Review of Systems: Unchanged from yesterday. Physical Exam Physical Exam: General: Well-developed, well-nourished, elderly male, in no acute distress. Walking around his room. Alert and oriented. Skin: Warm dry with good turgor. No rashes. Postsurgical dressing is in place on the left anterior shoulder. No surrounding ecchymosis or erythema. Musculoskeletal: The patient has intact active motor function of his left digits and wrist. Elbow and shoulder range of motion were not attempted. Neurologic: Gross sensation is intact across all aspects of the left arm and hand by soft touch. Peripheral pulses are 2+. Results & Data Vital Signs (Past 12 Hours) Vital Signs Temp Pulse Resp BP Pulse Ox O2 Del Method 12/27/24 07:15 37 C 61 18 118/72 99 Room Air 12/27/24 03:14 36.6 C 73 16 130/73 96 Room Air 12/26/24 23:04 36.5 C 62 16 129/80 96 Room Air Laboratory Results CBC obtained this morning shows a white count of 9.68. H&H of 11.5 and 34.4. Platelets 249,000. PRP this morning shows sodium 136, potassium 4.2. CO2 25. Anion gap of 6. BUN of 26 with creatinine 1.36. Glucose this morning is 109.
== END 2024-12-27 10:04 | disposition home or self-care (01) ==
LOC: ASU 05:27 → 3E 05:27